=== PATIENT | male | born 1955 | race Caucasian/White ===

== ENCOUNTER 2019-12-01 10:21 | Emergency (ER) | payer MEDICARE, MEDICAID ==
[~2019-12-01] VITALS: Ht 167.6 cm; Wt 106.8 kg
[~2019-12-01 10:21] MED LIST: ASPI-1265 PO; METO50TA7 PO; ROSU20TA2 PO; SITA100T15 PO; TRAM50TA2 PO; VALS160T2 PO
[2019-12-01 10:38] VITALS: BP 193/61
== END 2019-12-01 12:07 | disposition home or self-care (01) ==
LOC: ER 10:22
DX: S93.402A Sprain of unspecified ligament of left ankle, initial encounter (principal); E11.9 Type 2 diabetes mellitus without complications; Z79.899 Other long term (current) drug therapy; Z88.5 Allergy status to narcotic agent; Z88.8 Allergy status to other drugs, medicaments and biological substances; Z72.89 Other problems related to lifestyle; W10.9XXA Fall (on) (from) unspecified stairs and steps, initial encounter; Y93.01 Activity, walking, marching and hiking; Y92.89 Other specified places as the place of occurrence of the external cause; Y99.8 Other external cause status
CPT/HCPCS: 73610; 99283

== ENCOUNTER 2024-06-13 09:17 | Day surgery (SDC) | payer MEDICARE, MEDICAID ==
[~2024-06-13] VITALS: Ht 165.1 cm; Wt 93.1 kg
[2024-06-13] VITALS (10 sets, daily range): BP systolic 152–188; BP diastolic 58–85; PULSE 45–69; RESP 12–19; TEMP 98; O2SAT 95–97
[2024-06-13] MEDS ORDERED: MESSAGE TO NURSING IV ONE (09:45)
[2024-06-13] MEDS ORDERED: INSU3INS2 SQ (09:46)
[2024-06-13] MEDS ORDERED: LOSA1TAB41 PO (09:47)
[2024-06-13] MEDS ORDERED: FERR324T PO (09:47)
[2024-06-13] MEDS ORDERED: ATOR10TA70 PO (09:49)
[2024-06-13] MEDS ORDERED: NOVRI SQ (09:49)
[2024-06-13] MEDS ORDERED: LABE100T8 PO (09:52)
[2024-06-13] MEDS ORDERED: CARV25TA56 PO (09:54)
[2024-06-13] MEDS: sodium bicarbonate 1meq/ml syr 150 ML in dextrose 5%-water 1,000 ML IV ONE (10:07)
[2024-06-13] MEDS: normal saline 1,000 ML IV SCH (10:07)
[2024-06-13 10:15] LABS: BASOPHILS % (AUTO) 0.4 % (0-1); EOSINOPHILS # (AUTO) 0.2 X10'3 (0-0.9); EOSINOPHILS % (AUTO) 1.7 % (0-6); HEMATOCRIT 34.5 % (42.0-52.0); HEMOGLOBIN 11.5 g/dl (14.0-17.9); LYMPHOCYTES # (AUTO) 2.2 X10'3 (1.1-4.8); LYMPHOCYTES % (AUTO) 20.6 % (21-51); MEAN CORPUSCULAR HGB CONC 33.4 g/dL (33.0-36.5); MEAN CORPUSCULAR VOLUME 86.9 FL (78-98); MONOCYTES # (AUTO) 0.7 X10'3 (0-0.9); MONOCYTES % (AUTO) 6.5 % (2-12); NEUTROPHILS # (AUTO) 7.5 X10'3 (1.8-7.7); NEUTROPHILS % (AUTO) 70.8 % (42-75); PLATELET COUNT 278 X10'3 (140-440); RED BLOOD COUNT 3.98 X10'6 (4.70-6.10); RED CELL DISTRIBUTION WIDTH 16.6 % (11.5-14.5); WHITE BLOOD COUNT 10.6 X10'3 (4.5-11.0)
[2024-06-13 10:16] LABS: INR 1.1 INR; PROTHROMBIN TIME 10.9 SECONDS (9.0-12.0)
[2024-06-13 10:17] LABS: ALBUMIN 3.7 G/DL (3.4-5.0); ANION GAP 8 (8-16); BLOOD UREA NITROGEN 12 MG/DL (7-18); BUN/CREATININE RATIO 15.4 (10.0-20.0); CALCIUM 8.5 MG/DL (8.5-10.1); CHLORIDE 107 MMOL/L (99-107); CREATININE 0.78 MG/DL (0.60-1.10); GLUCOSE 85 MG/DL (70-104); MAGNESIUM 1.9 MG/DL (1.5-2.4); POTASSIUM 3.7 MMOL/L (3.5-5.1); SODIUM 142 MMOL/L (135-145); TOTAL CARBON DIOXIDE 26.7 MMOL/L (24-32); eCRCL 78 ML/MIN; eGFR > 90 ML/MIN
[2024-06-13] MEDS: diphenhydrAMINE 25mg capsule PO PRN (10:34)
[2024-06-13] MEDS ORDERED: iohexol 350MG/ML 100ml bottle IV ONE ×2 (12:02→13:09)
[2024-06-13] MEDS ORDERED: heparin 1,000unit/ml 10ml vial 10 ML ONE (12:02)
[2024-06-13] MEDS ORDERED: iohexol 350 MG/ML 50ML vial IV ONE (12:02)
[2024-06-13] MEDS ORDERED: midazolam 1 mg/ML 2ml injection ONE ×2 (12:02→12:46)
[2024-06-13] MEDS ORDERED: LIDOcaine 1% (10mg/ml) 2ml vial ONE ×2 (12:02→12:50)
[2024-06-13] MEDS ORDERED: verapamil 2.5 mg/ml inj IV ONE (12:02)
[2024-06-13] MEDS ORDERED: fentaNYL/PF 50MCG/1 ML 2ML syringe ONE (12:02)
[2024-06-13] MEDS ORDERED: nitroGLYCERIN 500mcg/5mL D5W 5 ML IV ONE (12:03)
[2024-06-13] MEDS ORDERED: HYDROmorphone 1 mg/ml syringe ONE (12:35)
[2024-06-13] MEDS ORDERED: proCHLORperazine 10 MG/2 ml inj ONE (12:53)
[2024-06-13] MEDS ORDERED: enalaprilat 1.25mg/ml 2ml vial IV ONE (13:22)
[2024-06-13] MEDS ORDERED: hydrALAZINE 20mg/ml inj. ONE (13:34)
[2024-06-13] MEDS ORDERED: HYDROcodone/acetaminophen 5mg/325mg tablet PO PRN (14:00)
[2024-06-13] MEDS ORDERED: ondansetron/PF 4mg/2ml inj IV PRN (14:00)
[2024-06-13] MEDS ORDERED: HYDROcodone/acetaminophen 10/325mg tab PO PRN (14:00)
[2024-06-13] MEDS ORDERED: proCHLORperazine 10 MG/2 ml inj IV PRN (14:00)
[2024-06-13] MEDS: cloNIDine 0.1 mg tablet PO ONE (14:59)
== END 2024-06-13 17:15 | disposition home or self-care (01) ==
LOC: SSTAY O 09:17
PROVIDERS: ATTEND Internal Medicine Cardiovascular Disease
DX: I25.118 Atherosclerotic heart disease of native coronary artery with other forms of angina pectoris (principal); I35.0 Nonrheumatic aortic (valve) stenosis; I44.7 Left bundle-branch block, unspecified; E78.5 Hyperlipidemia, unspecified; E11.9 Type 2 diabetes mellitus without complications; I10 Essential (primary) hypertension; I65.23 Occlusion and stenosis of bilateral carotid arteries; F31.9 Bipolar disorder, unspecified; B19.20 Unspecified viral hepatitis C without hepatic coma; G47.30 Sleep apnea, unspecified
CPT/HCPCS: 36415; 80048; 82948; 83735; 85025; 85610; 93005; 93458; 99152; 99153; A6258; A6402; C1894; J0360; J0780; J1171; J1644; J2003; J2250; J3010; J3490; J7030; J7070; Q0163; Q9967; Z7610

== ENCOUNTER 2025-01-06 09:57 | Inpatient (IN) | payer MEDICARE, MEDICAID ==
[2024-12-29 13:59] LABS: LEUKOCYTE ESTERASE ,URINE NEGATIVE (Neg); NITRITES, URINE NEGATIVE (Neg); OCCULT BLOOD,URINE NEGATIVE (Neg)
[2024-12-29 14:00] LABS: UA COLLECTION TYPE CLN CATCH MIDSTREAM
[2024-12-29 14:07] LABS: MUCUS STRANDS NONE SEEN /LPF (Neg); SQUAMOUS EPITHELIAL CELL,UR FEW /LPF (FEW)
--- NOTE | 2024-12-29 15:00 | ELECTROCARDIOGRAPH REPORT ---
[facility] Test Date: 2024-12-29 Test Time: 15:57:58 Pat Name: MECCA HENRIQUEZ Department: PRE/OP CARDIOLOGY Room: Gender: M Service Unit Operator: ROBSON : 1955 Requested By: SANTOS QUIROZ Order Number: [id number] Reading MD: Dr. KAYLEEN Frazier Measurements Intervals [place] Rate: 64 P: 55 UT: 167 QRS: 58 QRSD: 145 T: 180 QT: 476 QTc: 491 Interpretive Statements Sinus rhythm Atrial premature complexes IVCD, consider atypical LBBB Electronically Signed On 12-29-2024 17:49:[address] KAYLEEN Frazier Please click the below link to view image of tracing.
[2024-12-29 15:15] LABS: MEAN PLATELET VOLUME 9.2 FL (7.4-10.4); PRE OP HEMATOCRIT 35.6 % (42.0-52.0); PRE OP HEMOGLOBIN 12.1 g/dL (14.0-17.9); PRE OP PLATELET COUNT 239 X10'3 (140-440); PRE OP WHITE BLOOD COUNT 9.4 10'3 (4.8-10.8); RED CELL DISTRIBUTION WIDTH 15.2 % (11.5-14.5)
--- NOTE | 2024-12-29 15:40 | RADIOLOGY REPORT ---
CHEST RADIOGRAPH Indication: PRE OP CXR CABG Technique: Frontal and lateral view of the chest was obtained Comparison: CATH HEART CATH W/WO STENT on DOS: 06/13/24 FINDINGS: Lines and Tubes: None Lungs: Clear Pleura: No effusion. No pneumothorax. Cardiomediastinal contours: Unremarkable Bones: Unremarkable IMPRESSION: No evidence of acute disease.
--- NOTE | 2024-12-29 15:41 | VASCULAR REPORT ---
PROCEDURE: [facility] VENOUS Exam Date: 12/29/2024 02:29 PM History: Pain Findings: Duplex Doppler evaluation of the superficial veins of the right and left lower extremities was performed including color Doppler and spectral/pulsed waveform analysis. Measurements of the lower extremity superficial veins in millimeters (mm) are provided below. [employer] Preop CABG vein mapping Vein Measurements Great Saphenous Small Saphenous Right Lef Right Left Saph-Fem. 5.03mm 3.88mm Proximal Junction Mid Thigh 4.86mm 2.45mm Mid Distal Thigh 3.27mm 3.83mm Distal Proximal Calf 2.81mm 2.81mm Mid Calf 2.46mm 1.61mm Distal Calf 2.87mm 1.77mm CONCLUSION Imaging reveals a patent great saphenous vein bilaterally. The great saphenous vein was measured and mapped bilaterally. Tech note* there appears to be a bifid great saphenous vein system in the right lower extremity from mid thigh to proximal calf. The true great saphenous vein was measured.
--- NOTE | 2024-12-29 15:43 | VASCULAR REPORT ---
Carotid Duplex Date: 12/29/2024 02:11 PM Clinical History: Preop CABG Comparison: VASC VL VENOUS on DOS: 12/29/24 Technique: Duplex Doppler evaluation of the extracranial carotid and vertebral arteries including color Doppler and spectral/pulsed waveform analysis was performed. Findings: Doppler Spectral Velocity Analysis Right Lef pCCA 84/14 cm/s pCCA 149/31 cm/s dCCA 82/18 cm/s dCCA 126/26 cm/s ECA 221/ cm/s ECA 111/ cm/s pICA 111/26 cm/s pICA 93/22 cm/s Brien 95/20 cm/s Brien 89/24 cm/s dICA 118/28 cm/s dICA 102/24 cm/s Vert. 68/10 cm/s Vert. 66/20 cm/s Subcl. 126/ cm/s Subcl. 163/ cm/s ICA/CCA 1.43 ICA/CCA 0.80 Real-Time B-Mode Imaging Area Findings Right Left CCA Plaque Composition Intimal thickening Heterogeneous Plaque Description Irregular BIF Plaque Composition Heterogeneous Heterogeneous Plaque Description Irregular Irregular ICA Plaque Composition Heterogeneous Heterogeneous Plaque Description Irregular Irregular ECA Plaque Composition Heterogeneous Heterogeneous Plaque Description Irregular Irregular Vertebral Antegrade Antegrade Subclavian Multiphasic Multiphasic CONCLUSION Mild heterogeneous irregular plaque visualized at the carotid arteries bilaterally. Less than 50% stenosis visualized in the internal carotid arteries bilaterally. Less than 50% stenosis visualized in the common and external carotid arteries bilaterally. Of note, the left external carotid artery appears to be approaching a possible 50% stenosis per imaging. There was also heterogeneous plaque visualized in common carotid artery, however no significant narrowing. the left proximal
[2024-12-29 15:52] LABS: PRE OP INR 1.0 INR; PRE OP PARTIAL THROMB. TIME 28.0 SECONDS (22-32); PRE OP PROTIME 10.4 SECONDS (9.0-12.0)
[2024-12-29 15:55] LABS: CREATININE 0.89 MG/DL (0.60-1.10); PRE OP ALT 31 U/L (30-65); PRE OP ANION GAP 5 (8-16); PRE OP AST 16 U/L (10-37); PRE OP BILIRUB, TOTAL 0.8 MG/DL (0.0-1.0); PRE OP GLUCOSE 95 MG/DL (70-104); PRE OP POTASSIUM 3.9 MMOL/L (3.4-5.1); PRE OP SODIUM 141 MMOL/L (135-145); TOTAL CARBON DIOXIDE 31.3 MMOL/L (24-32); eGFR 85 ML/MIN
[2024-12-30 07:43] LABS: ABG BASE EXCESS 1.0 mmol/L (-2.0-3.0); ABG HCO3 25.1 mmol/L (21.0-28.0); ABG OXYGEN SATURATION 94.7 % (94.0-98.0); ABG PCO2 (T) 38.1 mmHg (35.0-48.0); ABG PH (T) 7.436 (7.350-7.450); ABG PO2 (T) 74.8 mmHg (83.0-108.0); ALLEN'S TEST POSITIVE; FCOHb 0.1 % (0.5-1.5); FHHb 5.3 % (0.0-5.0); FIO2 21.0 mmHg/%; FMetHb 0.3 % (0.0-1.5); FO2Hb 94.3 % (94.0-98.0); MODE ROOM AIR; PATIENT TEMPERATURE 37.0; TOTAL HEMOGLOBIN 13.1 G/dl (13.5-17.5)
--- NOTE | 2024-12-31 15:32 | PROCEDURE NOTE - Respiratory ---
Procedure Note-Respiratory Providers to CC Copies To 1: SANTOS QUIROZ III, MD Procedure Name: This is a spirometry study dated December 29, 2024. Spirometry measurements: Both the forced vital capacity and the FEV1 are normal. The FEV1 ratio is normal. The flow rates are normal. The inspiratory limb of the flow volume loop appears to be somewhat truncated. Bronchodilator was not administered as part of the study. Conclusion: Normal screening spirometry. We have no previous studies for comparison. CELIO MA MD Dec 31, 2024 15:32
[2025-01-06] VITALS (16 sets, daily range): BP systolic 104–141; BP diastolic 44–90; PULSE 66–97; RESP 13–24; TEMP 98.2; O2SAT 72–97
[~2025-01-06] VITALS: Ht 165.1 cm; Wt 92.0 kg
[~2025-01-06 09:57] MED LIST changes: +ASCO-134 PO; +ATOR10TA70 PO; +CHOL200012 PO; +CYAN-116 PO; +DAPA10TA PO; +FERR324T PO; +INSU3INS2 SQ; +LABE100T8 PO; +LOSA1TAB41 PO; +MAGN400C PO; -METO50TA7 PO; +NIFE-73 PO; +POTA99CA PO; -ROSU20TA2 PO; +SEMA1PEN3 SUBCUT; -SITA100T15 PO; -TRAM50TA2 PO; -VALS160T2 PO; +VITA1CAP PO; +dextrose 50%-water 50ml dispensing syringe IV PRN; +insulin glargine (Lantus) pen - multi-dose SQ PRN; +metoprolol tartrate 12.5mg (1/2 tablet) PO ONE
[2025-01-06] MEDS ORDERED: heparin 10,000 units/1 ML INJ ONE ×2 (10:12→12:15)
[2025-01-06] MEDS ORDERED: vancomycin 1,000mg inj ONE ×2 (10:13→10:24)
[2025-01-06] MEDS ORDERED: BUPIVAcaine 0.5% inj/PF 30 ML ONE (10:13)
[2025-01-06] MEDS ORDERED: propofol inj 20 ML IV ONE (11:25)
[2025-01-06] MEDS ORDERED: rocuronium 10mg/ml inj IV ONE ×2 (11:25)
[2025-01-06] MEDS ORDERED: ePHEDrine 50MG/ML INJ. ONE (11:26)
[2025-01-06] MEDS: metoprolol tartrate 12.5mg (1/2 tablet) PO ONE (12:11)
[2025-01-06] MEDS: mupirocin 2% nasal ointment 1gm UD NS ONE (12:12)
[2025-01-06] MEDS: VANCOMYCIN/H2O 1.5g/300mL PB 300 ML IV ONE (12:12)
[2025-01-06] MEDS: ringers solution, lacted 1,000 ML IV SCH (12:12)
[2025-01-06] MEDS: ceFAZolin 2gm/dext,iso 50mL 50 ML IV ONE (12:14)
[2025-01-06] MEDS ORDERED: calcium chloride 100 MG/1 ML inj IV ONE (12:15)
[2025-01-06] MEDS ORDERED: NORepinephrine 1 mg/ml inj IV ONE (12:15)
[2025-01-06] MEDS ORDERED: albumin (human) 25% 100 ML IV solution IV ONE (12:15)
[2025-01-06] MEDS ORDERED: mannitol 12.5gm/50mL VIAL IV ONE (12:15)
[2025-01-06] MEDS ORDERED: methylPREDNISolone sod succ 1000mg vial ONE (12:15)
[2025-01-06] MEDS ORDERED: sodium bicarbonate (8.4%) 1 mEq/ml syringe ONE (12:15)
[2025-01-06] MEDS ORDERED: MAGNESIUM SULFATE 4 MEQ/ML (5gm/10ml) injection ONE (12:15)
[2025-01-06] MEDS ORDERED: protamine sulfate 10mg/ml inj. ONE (12:15)
[2025-01-06] MEDS ORDERED: aminocaproic acid 250 MG/1 ML inj. ONE ×2 (12:15)
[2025-01-06] MEDS ORDERED: MIDAZolam 1 MG/ML 5ML VIAL ONE (12:16)
[2025-01-06] MEDS ORDERED: SUfentanil 50mcg/ml 1ml amp IV ONE (12:16)
[2025-01-06] MEDS: midazolam 1 mg/ML 2ml injection IV ONE (12:18)
--- NOTE | 2025-01-06 12:41 | VASCULAR REPORT ---
Indication: Preoperative radial artery mapping Technique: Real- time ultrasound images of the bilateral radial arteries grayscale, color, and spectral wave Doppler. Comparison: None Findings: Peak systolic velocities are as follows (in cm/s): Right: The right radial artery measures in mm 2.9 mm proximally, 2.3 mm mid segment, 2.4 mm distally. Left: The left radial artery measures 8 mm 2.9 mm proximally, 1.8 mm mid segment, 1.8 mm distally. Within the limitations of sonography, the bilateral palmar arch appears patent. Biphasic/ triphasic waveforms within the right radial artery. Biphasic / triphasic waveforms within the left radial artery. Impression: As above
[2025-01-06 12:58] LABS: ABG BASE EXCESS -4.1 mmol/L (-2.0-3.0); ABG HCO3 20.1 mmol/L (21.0-28.0); ABG OXYGEN SATURATION 97.6 % (94.0-98.0); ABG PCO2 34.0 mmHg (35.0-48.0); ABG PH 7.390 (7.350-7.450); ABG PO2 104.9 mmHg (83.0-108.0); CL (ABG) 109 mmol/L (98-107); FCOHb 0.1 % (0.5-1.5); FHHb 2.4 % (0.0-5.0); FMetHb 0.3 % (0.0-1.5); FO2Hb 97.2 % (94.0-98.0); GLUCOSE (ABG) 97 mg/dl (65-95); IONIZED CA (ABG) 1.13 mmol/L (1.15-1.33); K (ABG) 3.7 mmol/L (3.40-4.50); TOTAL HEMOGLOBIN 12.2 G/dl (13.5-17.5)
[2025-01-06 13:03] LABS: ACT @ 1.70 U 275 SEC (193-297); ACT @ 2.84 U 380 SEC (260-420); BASELINE ACT 138 SEC (101-148); PATIENT WEIGHT 83.0k KG
[2025-01-06] MEDS: vancomycin 1,000mg inj IVT ONE (13:04)
[2025-01-06] MEDS: papaverine 30 mg/ml 2ml inj. IA ONE (13:04)
[2025-01-06] MEDS: BUPIVAcaine 0.5% inj/PF 30 ml vial IJ ONE (13:04)
[2025-01-06] MEDS: heparin 10,000 units/1 ML INJ IR ONE ×2 (13:04→13:50)
[2025-01-06] MEDS: verapamil 2.5 mg/ml inj IV ONE (13:04)
[2025-01-06 14:33] LABS: ABG BASE EXCESS VENOUS -2.8 mmol/L (-2.0-3.0); ABG HCO3 VENOUS 22.3 mmol/L (22.0-29.0); ABG OXYGEN SATURATION VENOUS 79.0 % (60.0-85.0); ABG PCO2 VENOUS 39.9 mmHg (38.0-54.0); ABG PH (VENOUS) 7.366 (7.320-7.430); ABG PO2 VENOUS 43.8 mmHg (23.0-48.0); CL (ABG) 102 mmol/L (98-107); FCOHb VENOUS 0.4 % (0.5-1.5); FHHb VENOUS 20.9 %; FMetHb VENOUS 0.3 % (0.5-1.5); FO2Hb VENOUS 78.4 % (0-80.0); GLUCOSE (ABG) 97 mg/dl (65-95); IONIZED CA (ABG) 0.86 mmol/L (1.15-1.33); K (ABG) 3.9 mmol/L (3.40-4.50); TOTAL HEMOGLOBIN 8.2 G/dl (13.5-17.5)
[2025-01-06 14:35] LABS: ACTIVATED CLOTTING TIME 760.0 SEC (101-148)
[2025-01-06 14:35] LABS: ABG BASE EXCESS -3.3 mmol/L (-2.0-3.0); ABG HCO3 21.4 mmol/L (21.0-28.0); ABG OXYGEN SATURATION 99.5 % (94.0-98.0); ABG PCO2 36.7 mmHg (35.0-48.0); ABG PH 7.383 (7.350-7.450); CL (ABG) 104 mmol/L (98-107); FCOHb 0.3 % (0.5-1.5); FHHb 0.5 % (0.0-5.0); FMetHb 0.3 % (0.0-1.5); FO2Hb 98.9 % (94.0-98.0); GLUCOSE (ABG) 99 mg/dl (65-95); IONIZED CA (ABG) 0.95 mmol/L (1.15-1.33); K (ABG) 3.5 mmol/L (3.40-4.50); TOTAL HEMOGLOBIN 8.3 G/dl (13.5-17.5)
[2025-01-06 14:46] LABS: ABG BASE EXCESS -2.9 mmol/L (-2.0-3.0); ABG HCO3 22.5 mmol/L (21.0-28.0); ABG OXYGEN SATURATION 99.3 % (94.0-98.0); ABG PCO2 41.8 mmHg (35.0-48.0); ABG PH 7.349 (7.350-7.450); CL (ABG) 106 mmol/L (98-107); FCOHb 0.3 % (0.5-1.5); FHHb 0.7 % (0.0-5.0); FMetHb 0.2 % (0.0-1.5); FO2Hb 98.8 % (94.0-98.0); GLUCOSE (ABG) 109 mg/dl (65-95); IONIZED CA (ABG) 0.98 mmol/L (1.15-1.33); K (ABG) 4.0 mmol/L (3.40-4.50); TOTAL HEMOGLOBIN 8.7 G/dl (13.5-17.5)
[2025-01-06 15:03] LABS: ABG BASE EXCESS -1.7 mmol/L (-2.0-3.0); ABG HCO3 23.5 mmol/L (21.0-28.0); ABG OXYGEN SATURATION 99.1 % (94.0-98.0); ABG PCO2 41.5 mmHg (35.0-48.0); ABG PH 7.370 (7.350-7.450); CL (ABG) 105 mmol/L (98-107); FCOHb 0.3 % (0.5-1.5); FHHb 0.9 % (0.0-5.0); FMetHb 0.2 % (0.0-1.5); FO2Hb 98.6 % (94.0-98.0); GLUCOSE (ABG) 138 mg/dl (65-95); IONIZED CA (ABG) 0.98 mmol/L (1.15-1.33); K (ABG) 3.8 mmol/L (3.40-4.50); TOTAL HEMOGLOBIN 8.2 G/dl (13.5-17.5)
[2025-01-06 15:13] LABS: ACTIVATED CLOTTING TIME 554.0 SEC (101-148)
[2025-01-06 15:29] LABS: ABG BASE EXCESS -1.7 mmol/L (-2.0-3.0); ABG HCO3 24.3 mmol/L (21.0-28.0); ABG PCO2 47.3 mmHg (35.0-48.0); ABG PH 7.328 (7.350-7.450); CL (ABG) 107 mmol/L (98-107); FCOHb 0.2 % (0.5-1.5); FHHb 28.7 % (0.0-5.0); FMetHb 0.2 % (0.0-1.5); FO2Hb 70.9 % (94.0-98.0); GLUCOSE (ABG) 177 mg/dl (65-95); IONIZED CA (ABG) 1.18 mmol/L (1.15-1.33); K (ABG) 4.0 mmol/L (3.40-4.50); TOTAL HEMOGLOBIN 8.6 G/dl (13.5-17.5)
[2025-01-06 15:32] LABS: ACTIVATED CLOTTING TIME 106 SEC (101-148)
[2025-01-06] MEDS: DOCUMENT DATE & TIME OF BETA-BLOCKER PO ONE (15:36)
[2025-01-06] MEDS: Insulin Reg/NS 100units/100mL 100 ML IV SCH ×2 (15:36→16:36)
[2025-01-06] MEDS ORDERED: dextrose 50%-water 50ml dispensing syringe IV PRN (15:40)
[2025-01-06] MEDS ORDERED: mineral oil 133ml enema RC PRN (15:40)
[2025-01-06] MEDS ORDERED: potassium Cl 20 mEq SR tablet PO PRN (15:40)
[2025-01-06] MEDS ORDERED: SODIUM PHOSPHATE IN D5W 260 ML IV PRN (15:40)
[2025-01-06] MEDS ORDERED: potassium Cl 40MEQ/1/2NS 520ml 520 ML IV PRN (15:40)
[2025-01-06] MEDS ORDERED: magnesium hydroxide 30ml (MOM) UD suspension PO PRN (15:40)
[2025-01-06] MEDS ORDERED: sodium phos 15mmol/D5 255mL 255 ML IV PRN (15:40)
[2025-01-06] MEDS ORDERED: potassium Cl 40MEQ/270ML bag 250 ML IV PRN (15:40)
[2025-01-06] MEDS ORDERED: bisacodyl 10mg suppository rectal RC PRN (15:40)
[2025-01-06] MEDS ORDERED: potassium CL 10mEq/100ml bag 100 ML IV PRN (15:40)
[2025-01-06] MEDS ORDERED: insulin glargine (Lantus) pen - multi-dose SQ PRN (15:40)
--- NOTE | 2025-01-06 15:56 | OPERATIVE REPORT ---
Operative Report Operative Report Cardiovascular surgery operative report 06 January 2025 Preoperative diagnosis: severe two-vessel coronary disease, exertional angina Postop diagnosis: Same Procedure: Coronary artery bypass grafting x3 placing the right internal mammary artery as a free graft to the obtuse marginal and a sequential left radial artery graft to the 1st and 2nd PDA of the RCA Surgeon: Dr. Huber Celis program support assistant: Dr. Boston Sharpe and Sharif Mills PA-C Anesthesia: General via endotracheal tube Complications: None EBL: 200 mL Procedure: The patient is taken to the operating room placed in supine position. Following the induction of general oral endotracheal anesthesia and the placement of appropriate lines the chest, abdomen and bilateral lower extremities as well as the left arm were prepped and draped sterilely. The left radial artery was removed endoscopically from the left forearm. Side branches were controlled with electrocautery. It was ligated proximally and distally and then excised. Side branches were then clipped with small hemoclips. It was flushed with heparinized blood containing nitroglycerin and set aside. Careful hemostasis was achieved throughout the tunnel which was irrigated with antibiotic solution. The incision was closed in two layers absorbable suture. At the same time a median sternotomy was performed in the right pleural space was widely opened. The right internal mammary artery was then dissected free of the anterior chest wall as a skeletonized graft. Side branches were controlled with the electrocautery and hemoclips. The patient was systemically heparinized and after 3 minutes the DENNIS was divided at the diaphragm, ligating it distally with 0 silk. It was flushed with heparinized blood containing nitroglycerin and set aside. The pericardium was then opened in midline and suspended. Single aortic and dual stage right atrial cannula were then placed for cardiopulmonary bypass. The distal anastomosis with a bypasses were all done with running seven 0 Prolene, probing prior to tying the suture line to ensure patency. They were done on a beating heart using cardiopulmonary bypass for hemodynamic support. An epicardial stabilizer was utilized to facilitate the distal anastomosis. The 1st bypass was a sequential radial graft to the right system placing an end-to-side anastomosis to the PDA two with a [id number] anastomosis to the PDA one. The free right internal mammary artery graft was then anastomosed in end-to-side fashion to the obtuse marginal. A partial occluding clamp was placed in the ascending aorta and two aortotomies were created with a 4 mm punch. This allowed the proximal anastomosis with the vein grafts to be performed. Each was done in end-to-side fashion with running six 0 Prolene. Proximal markers were placed. The clamp was removed and flow was restored to the entire coronary circulation. Temporary pacing wires placed the anterior surface of the right ventricle. Ventilation was resumed. The patient was then easily weaned from cardiopulmonary bypass. He was decannulated in the standard fashion protamine solution was administered to reverse heparinization. Careful hemostasis was achieved throughout the mediastinum. A 2 mm flow probe was used to confirm PI of less than two with a both grafts as well as flows of 25-30 mL/minute. The pericardial fat was loosely approximated in the midline with interrupted 2-0 Ethibond, taking away kinking or compression of the underlying grafts. A 28 Lao Randal drain was placed to the right pleural space with a 32 Lao straight chest tube placed anterior to the mediastinum. These were both secured to skin with 1. Silk. The chest was then closed by 1st treating the sternal edges with the vancomycin paste. It was reapproximated in the midline with interrupted [id number]-rzywnt of 7. Stainless steel wire in concert with zip fix sternal bands. The midline fascia, subcutaneous tissue and skin were closed in layers. Sterile dressings were applied and the chest tube was attached to water-seal. The patient is then returned to the ICU in critical but stable condition, having tolerated the procedure satisfactorily. There were no complications. Sponge, needle and instrument counts were correct x2 at the end of the case. Sharif Mills PA-C was present for and assisted throughout the entire procedure. HUBER CELIS III, MD Jan 06, 2025 15:56
--- NOTE | 2025-01-06 16:16 | ELECTROCARDIOGRAPH REPORT ---
[facility] Test Date: 2025-01-06 Test Time: 16:14:58 Pat Name: MECCA HENRIQUEZ Department: [facility] Room: [facility] 2008 A Gender: M Foil Wrapper: ROBSON : 1955 Requested By: SANTOS QUIROZ Order Number: [id number] Reading MD: Dr. KAYLEEN Frazier Measurements Intervals [place] Rate: 96 P: 34 HI: 171 QRS: -2 QRSD: 148 T: 129 QT: 377 QTc: 477 Interpretive Statements Sinus rhythm Left bundle branch block Electronically Signed On 01-06-2025 18:03:[address] KAYLEEN Frazier Please click the below link to view image of tracing.
[2025-01-06 16:22] LABS: MEAN PLATELET VOLUME 8.9 FL (7.4-10.4); RED CELL DISTRIBUTION WIDTH 16.0 % (11.5-14.5)
[2025-01-06 16:31] LABS: ABG BASE EXCESS -3.4 mmol/L (-2.0-3.0); ABG HCO3 22.1 mmol/L (21.0-28.0); ABG OXYGEN SATURATION 93.7 % (94.0-98.0); ABG PCO2 (T) 40.3 mmHg (35.0-48.0); ABG PH (T) 7.354 (7.350-7.450); ABG PO2 (T) 73.0 mmHg (83.0-108.0); FCOHb 1.2 % (0.5-1.5); FHHb 6.2 % (0.0-5.0); FIO2 80.0 mmHg/%; FMetHb 0.3 % (0.0-1.5); FO2Hb 92.3 % (94.0-98.0); MODE VENT - SIMV/VC; PATIENT TEMPERATURE 36.5; PEEP 5 cm H2O; RESPIRATORY RATE 14 b/min; TIDAL VOLUME 500 mL; TOTAL HEMOGLOBIN 11.8 G/dl (13.5-17.5)
[2025-01-06] MEDS: nitroGLYCERIN-Tridil 50MG/D5W 250 ML IV SCH (16:35)
[2025-01-06 16:36] LABS: APTT 30 SECONDS (22-32); INR 1.2 INR
[2025-01-06] MEDS: niCARDipine-NS 40mg/200ml IVPB 200 ML IV PRN (16:36)
[2025-01-06 16:45] LABS: CREATININE 0.91 MG/DL (0.60-1.10); PHOSPHORUS 4.1 MG/DL (2.3-4.5); TOTAL CARBON DIOXIDE 24.7 MMOL/L (24-32); eCRCL 67 ML/MIN; eGFR 83 ML/MIN
[2025-01-06] MEDS: potassium Cl 20mEq/100mL bag 100 ML IV PRN (16:57)
[2025-01-06] MEDS ORDERED: niCARDipine-NS 40mg/200ml IVPB 200 ML IV PRN (17:12)
[2025-01-06] MEDS: magnesium sulf-water 4G/100mL 100 ML IV PRN (17:13)
[2025-01-06] MEDS: ceFAZolin/D5W- 1GM premix 50 ML IV SCH (17:16)
--- NOTE | 2025-01-06 17:23 | RADIOLOGY REPORT ---
CHEST RADIOGRAPH Indication: POST OP Technique: DI CHEST,SINGLE VIEW Comparison: None FINDINGS: Right IJ catheter tip projects over the SVC. Right IJ swan-Sang catheter tip projects over the main pulmonary artery. Nasogastric tube projects towards stomach. Endotracheal tube tip projects 4.7 cm above the alex. Right chest tube projects over the right upper lung. There is another line projecting over the midline abdomen and lower mid mediastinum. Correlate exclude any type of retained foreign body. The cardiac silhouette is borderline enlarged. The lungs demonstrate diffuse bilateral patchy airspace opacities. The pulmonary vasculature is prominent. Small bilateral pleural effusion. There is no pneumothorax. IMPRESSION: As above
[2025-01-06] MEDS: albumin (Human) 5% 250ml 250 ML IV PRN (17:33)
[2025-01-06] MEDS: magnesium sulf-water 2g/50mL 50 ML IV PRN (17:49)
[2025-01-06] MEDS: morphine 4 MG/ML inj SYRINge IV PRN (18:36)
[2025-01-06] MEDS: dexmedetomidin/NS 400mcg/100ml 100 ML IV PRN (18:49)
[2025-01-06 19:51] LABS: ABG BASE EXCESS -4.8 mmol/L (-2.0-3.0); ABG HCO3 20.1 mmol/L (21.0-28.0); ABG OXYGEN SATURATION 94.5 % (94.0-98.0); ABG PCO2 (T) 35.0 mmHg (35.0-48.0); ABG PH (T) 7.373 (7.350-7.450); ABG PO2 (T) 73.6 mmHg (83.0-108.0); FCOHb 1.0 % (0.5-1.5); FHHb 5.4 % (0.0-5.0); FIO2 40.0 mmHg/%; FMetHb 0.3 % (0.0-1.5); FO2Hb 93.3 % (94.0-98.0); MODE VENT - CPAP; PATIENT TEMPERATURE 36.1; PEEP 5 cm H2O; TOTAL HEMOGLOBIN 11.1 G/dl (13.5-17.5)
[2025-01-06] MEDS: mupirocin 2% nasal ointment 1gm UD NS SCH (20:18)
[2025-01-06] MEDS: ketorolac trometh 15mg/ml vial 15 MG/ML ML IV SCH (20:18)
[2025-01-06] MEDS: vancomycin/NS 1 GM ADD-VANTAGE 250 ML IV SCH (20:18)
[2025-01-06] MEDS: acetaminophen 1,000mg/100ml IV 100 ML IV ONE (21:09)
[2025-01-06 22:24] LABS: MEAN PLATELET VOLUME 9.1 FL (7.4-10.4); RED CELL DISTRIBUTION WIDTH 15.9 % (11.5-14.5)
[2025-01-06 22:39] LABS: CREATININE 0.98 MG/DL (0.60-1.10); PHOSPHORUS 3.8 MG/DL (2.3-4.5); TOTAL CARBON DIOXIDE 24.6 MMOL/L (24-32); eCRCL 62 ML/MIN; eGFR 76 ML/MIN
[2025-01-07] VITALS (30 sets, daily range): BP systolic 98–148; BP diastolic 47–66; PULSE 63–125; RESP 12–30; O2SAT 91–99
[2025-01-07 03:16] LABS: MEAN PLATELET VOLUME 10.3 FL (7.4-10.4); RED CELL DISTRIBUTION WIDTH 16.0 % (11.5-14.5)
[2025-01-07 03:39] LABS: CREATININE 0.97 MG/DL (0.60-1.10); PHOSPHORUS 4.4 MG/DL (2.3-4.5); TOTAL CARBON DIOXIDE 22.9 MMOL/L (24-32); eCRCL 63 ML/MIN; eGFR 77 ML/MIN
--- NOTE | 2025-01-07 06:19 | RADIOLOGY REPORT ---
CHEST RADIOGRAPH Indication: POST OP Technique: Single frontal view of the chest was obtained Comparison: DI CHEST,SINGLE VIEW on DOS: 01/06/25, DI CHEST,TWO VIEWS on DOS: 12/29/24 FINDINGS: Lines and Tubes: Removal of the endotracheal tube and the [place]-Sang catheter. Removal of the enteric tube. There is a right central venous catheter with the tip terminating in the superior vena cava. Lungs: Stable bilateral opacities. Pleura: Is a left pleural effusion. No pneumothorax. Cardiomediastinal contours: Unremarkable Bones: No acute osseous abnormality. IMPRESSION: 1. Removal of the endotracheal tube, [place]-Sang catheter and enteric tube. 2. Stable bilateral pulmonary opacities and left pleural effusion.
[2025-01-07 07:13] LABS: ABG PO2 387.6 mmHg (83.0-108.0)
[2025-01-07 07:14] LABS: ABG PO2 379.6 mmHg (83.0-108.0)
[2025-01-07 07:14] LABS: ABG PO2 373.7 mmHg (83.0-108.0)
[2025-01-07 07:15] LABS: ABG OXYGEN SATURATION 71.2 % (94.0-98.0); ABG PO2 40.1 mmHg (83.0-108.0)
[2025-01-07] MEDS: cholecalciferol (vitamin D3) 1,000 unit (25mcg) tablet PO SCH (07:25)
[2025-01-07] MEDS: cyanocobalamin 500mcg tablet PO SCH (07:30)
[2025-01-07] MEDS: metoprolol tartrate 12.5mg (1/2 tablet) PO SCH (07:30)
[2025-01-07] MEDS: vitamin B comp w/Vit. C tab 1 TAB TABLET PO SCH (07:34)
[2025-01-07] MEDS: ondansetron/PF 4mg/2ml inj IV PRN (07:43)
--- NOTE | 2025-01-07 08:10 | PROGRESS NOTE ---
Progress Note CV Providers to CC ~ Progress Note: POD#1 CABG Central Line/PICC still needed: No Kaley Indications Met/Not Met: F/C Indications Met Antibiotics Ordered?: Yes If Yes, Indications?: Surgical prophylaxis If Yes, Anticipated Duration?: 48 hours Subjective Subjective Patient a little sore this morning otherwise feeling well. Objective Vitals Vital Signs Date Time Temp Pulse Resp B/P (MAP) Pulse Ox O2 Delivery O2 Flow Rate FiO2 01/07/25 08:01 150/57 01/07/25 07:31 21 01/07/25 07:30 70 01/07/25 07:24 10.0 01/07/25 07:18 98 01/07/25 07:00 98.6 High Flow Nasal Cannula 01/07/25 06:00 35 Lab Results: 01/07/25 0300 01/07/25 0300 Objective Lungs decreased at right base greater than left base. Good expansion in the apices. Cardiac exam regular rate and rhythm with soft rub. Sternal incision clean and dry. Chest tube output moderate without air leak Coagulation Studies Laboratory Tests Test 01/06/25 14:04 01/06/25 16:10 01/06/25 16:37 Patient Sex (Coag) M Patient Height (Coag) 165cm Patient Weight (Coag) 83.0k KG Patient Blood Volume 5578 ML Pump Volume 1500 ML Total Blood Volume 7078 ML Projected Heparin Concentration 2.6 MG/KG Heparin [place] 98 Calculated Heparin Bolus 69764 UNITS Activated Coagulation Time Baseline 138 SEC (101-148) Activated Coag Time 1.70 U/mL 275 SEC (193-297) Activated Coag Time 2.84 U/mL 380 SEC (260-420) Prothrombin Time 12.0 SECONDS (9.0-12.0) INR International Normalized Ratio 1.2 INR Activated Partial Thromboplast Time 30 SECONDS (22-32) Coagulation Comments Heparin Level (COAG) 0 MG/KG Calculated Heparin Req (Hep Assay) 98202 UNITS Calculated Protamine Req (Hep Assay 0 MG Activated Clotting Time 106 SEC (101-148) Cardiac Rhythm: Sinus Rhythm, BBB Problem\Assessment\Plan Additional Plan Doing well following coronary artery bypass grafting. We will begin Imdur this morning for renal artery graft. Begin to mobilize and push incentive spirometry. Low-dose beta blockade as tolerated. We will discontinue nitroglycerin drip this afternoon. SANTOS QUIROZ III, MD Jan 07, 2025 08:10
[2025-01-07] MEDS ORDERED: dextrose 50%-water 50ml dispensing syringe IV PRN ×2 (08:20)
[2025-01-07] MEDS ORDERED: DEXTROSE 15 GM of carb/4 tabs (each vial/BOTTLE has 4 tablets) PO PRN ×2 (08:20)
[2025-01-07] MEDS ORDERED: glucagon, human recombinant 1mg kit SUBCUT PRN (08:20)
[2025-01-07] MEDS: isosorbide mononitrate 30mg tab.SR.24H PO SCH (08:44)
[2025-01-07] MEDS: INSULIN LISPRO 100 UNIT/ML INSULN.PEN MULTI-DOSE SQ SCH (13:14)
[2025-01-07] MEDS: HYDROcodone/acetaminophen 10/325mg tab PO PRN ×2 (16:51→20:37)
--- NOTE | 2025-01-07 17:46 | CARDIOLOGY REPORT ---
APPROVED REPORT EXAM: Intraoperative transesophageal 2D, spectral and color flow Doppler echocardiogram. Study contains pre- and post-op images. Patient Location: CVOR Blood Pressure: 152 / 63 mmHg Heart Rate: 86 bpm Rhythm: MOSTLY SINUS WITH FREQUENT PVC's Indications CORONARY DISEASE CABG X 3 (2 RADIAL - CLAIRE ) Airport Control Operator: Fiona WHELAN DO / Ryan VINES MD / CCrowVCrowSURGEON: Tam QUIROZ MD Previous echo: NONE LEFT VENTRICLE PRE: Normal LV size with preserved systolic function. Mild concentric hypertrophy. LVEF is 55-60%. POST-OP: Unchanged. RIGHT VENTRICLE PRE: RV is normal size and function. POST-OP: Unchanged. ATRIA PRE: Left atrium appears at least mildly dilated. Left atrial appendage is visualized in multiple planes and appears normal without debris. Left upper pulmonary vein identified and isolated by 2D and color Doppler. Incidental saline study was performed with 1 IV injection of 10 ccs of agitated normal s flakito at rest. Negative saline study for right to left flow. POST-OP: Unchanged. AORTIC VALVE PRE: Trileaflet AV appears minimally sclerotic without stenosis or insufficiency. POST-OP: Unchanged. MITRAL VALVE PRE: Normal MV annulus without stenosis. Trace multijets regurgitation with BP 152/63. POST-OP: Mild multijet with BP 127 / 53 TRICUSPID VALVE PRE: TV appears structurally normal with mild regurgitation. POST-OP: Unchanged. PULMONIC VALVE PRE: Normal PV without stenosis, physiologic insufficiency. [place]-Sang catheter in the right heart across the pulmonic valve. POST-OP: Unchanged. GREAT VESSELS PRE: Aortic root is normal in size. Ascending aorta is normal in size. POST-OP: Unchanged. PERICARDIUM PRE: Normal pericardium. No effusion. POST-OP: Unchanged. CONCLUSION PRE: Normal LV size with preserved systolic function. Mild concentric hypertrophy. LVEF is 55-60%. POST-OP: Unchanged. PRE: RV is normal size and function. POST-OP: Unchanged. PRE: Left atrium appears at least mildly dilated. Left atrial appendage is visualized in multiple planes and appears normal wit hout debris. Left upper pulmonary vein identified and isolated by 2D and color Doppler. Incidental saline study was performed with 1 IV injection of 10 ccs of agitated normal saline at rest. Negative saline study for right to left flow. POST-OP: Unchanged. PRE: Trileaflet AV appears minimally sclerotic without stenosis or insufficiency. POST-OP: Unchanged. PRE: Normal MV annulus without stenosis. Trace multijets regurgitation with BP 152/63. POST-OP: Mild multijet with BP 127 / 53 PRE: TV appears structurally normal with mild regurgitation. POST-OP: Unchanged. PRE: Normal pericardium. No effusion. POST-OP: Unchanged. Conclusion PRE: Normal LV size with preserved systolic function. Mild concentric hypertrophy. LVEF is 55-60%. POST-OP: Unchanged. PRE: RV is normal size and function. POST-OP: Unchanged. PRE: Left atrium appears at least mildly dilated. Left atrial appendage is visualized in multiple planes and appears normal without debris. Left upper pulmonary vein identified and isolated by 2D and color Doppler. Incidental saline study was performed with 1 IV injection of 10 ccs of agitated normal saline at rest. Negative saline study for right to left flow. POST-OP: Unchanged. PRE: Trileaflet AV appears minimally sclerotic without stenosis or insufficiency. POST-OP: Unchanged. PRE: Normal MV annulus without stenosis. Trace multijets regurgitation with BP 152/63. POST-OP: Mild multijet with BP 127 / 53 PRE: TV appears structurally normal with mild regurgitation. POST-OP: Unchanged. PRE: Normal pericardium. No effusion. POST-OP: Unchanged.
[2025-01-07] MEDS: insulin glargine (Lantus) pen - multi-dose SQ SCH (21:47)
[2025-01-07] MEDS: amiodarone 150mg/dext, iso-os 100 ML IV ONE (22:38)
[2025-01-07] MEDS: amiodarone/D5 450MG/250ML BAG 250 ML IV SCH (22:47)
[2025-01-07] MEDS: amiodarone/D5 450MG/250ML BAG 250 ML IV ONE (23:21)
[2025-01-08] VITALS (34 sets, daily range): BP systolic 88–142; BP diastolic 44–69; PULSE 69–132; RESP 9–34; O2SAT 88–99
[2025-01-08 03:45] LABS: MEAN PLATELET VOLUME 9.9 FL (7.4-10.4); RED CELL DISTRIBUTION WIDTH 17.0 % (11.5-14.5)
[2025-01-08 03:48] LABS: CREATININE 2.10 MG/DL (0.60-1.10); PHOSPHORUS 6.4 MG/DL (2.3-4.5); TOTAL CARBON DIOXIDE 22.6 MMOL/L (24-32); eCRCL 29 ML/MIN; eGFR 31 ML/MIN
--- NOTE | 2025-01-08 06:05 | RADIOLOGY REPORT ---
CHEST RADIOGRAPH Indication: POST OP Technique: Single frontal view of the chest was obtained COMPARISON: DI CHEST,SINGLE VIEW on DOS: 01/07/25, DI CHEST,SINGLE VIEW on DOS: 01/06/25, DI CHEST,TWO VIEWS on DOS: 12/29/24 FINDINGS: Right-sided chest tube and right IJ line unchanged. Mediastinal drain unchanged. Stable mild enlargement of the cardiac silhouette. No pulmonary edema. Trace bilateral pleural effusions with mild bibasilar atelectatic changes. No pneumothorax or other adverse interval change. IMPRESSION: Stable findings.
--- NOTE | 2025-01-08 07:30 | PROGRESS NOTE ---
Progress Note CV Providers to CC ~ Antibiotics Ordered?: No Subjective Subjective S/P CABG X 3, POD # 2. He is alert, currently on bipap. Quite sore and asking for Morphine frequently. Objective Vitals Vital Signs Date Time Temp Pulse Resp B/P (MAP) Pulse Ox O2 Delivery O2 Flow Rate FiO2 01/08/25 07:07 75 16 97 60 16 01/08/25 07:00 99.0 121/65 (83) Bi-pap/CPAP 01/08/25 00:36 12.0 Lab Results: 01/08/25 0325 01/08/25 0325 Objective Lungs - a bit diminished at bases Heart - RRR, SR, A. fib last night, back to SR Abd/Extr - OK, L hand good CSM Incisions - CDI Coagulation Studies Laboratory Tests Test 01/06/25 14:04 01/06/25 16:10 01/06/25 16:37 Patient Sex (Coag) M Patient Height (Coag) 165cm Patient Weight (Coag) 83.0k KG Patient Blood Volume 5578 ML Pump Volume 1500 ML Total Blood Volume 7078 ML Projected Heparin Concentration 2.6 MG/KG Heparin [place] 98 Calculated Heparin Bolus 55481 UNITS Activated Coagulation Time Baseline 138 SEC (101-148) Activated Coag Time 1.70 U/mL 275 SEC (193-297) Activated Coag Time 2.84 U/mL 380 SEC (260-420) Prothrombin Time 12.0 SECONDS (9.0-12.0) INR International Normalized Ratio 1.2 INR Activated Partial Thromboplast Time 30 SECONDS (22-32) Coagulation Comments Heparin Level (COAG) 0 MG/KG Calculated Heparin Req (Hep Assay) 43687 UNITS Calculated Protamine Req (Hep Assay 0 MG Activated Clotting Time 106 SEC (101-148) Cardiac Rhythm: Sinus Rhythm, BBB Problem\Assessment\Plan Additional Plan POD # 2 CT output minimal and serous DC drains and PW. Creat elevated to 2.1, was on Toradol and had BP in the 80's with A. fib. Toradol DC'd, BP improved in SR Sepsis Screening Reassessment Date: Jan 08, 2025 Supervising Co-signing Provider: SONIA Banks Jan 08, 2025 07:30
[2025-01-08] MEDS ORDERED: potassium Cl 20 mEq SR tablet PO PRN ×2 (07:35)
[2025-01-08] MEDS ORDERED: potassium CL 10mEq/100ml bag 100 ML IV PRN (07:35)
[2025-01-08] MEDS ORDERED: potassium Cl 40MEQ/1/2NS 520ml 520 ML IV PRN (07:35)
[2025-01-08] MEDS ORDERED: magnesium sulf-water 4G/100mL 100 ML IV PRN (07:35)
[2025-01-08] MEDS ORDERED: magnesium sulf-water 2g/50mL 50 ML IV PRN (07:35)
[2025-01-08] MEDS ORDERED: potassium Cl 20mEq/100mL bag 100 ML IV PRN (07:35)
[2025-01-08] MEDS ORDERED: potassium Cl 40MEQ/270ML bag 250 ML IV PRN (07:35)
[2025-01-08] MEDS: insulin glargine (Lantus) pen - multi-dose SQ SCH (08:00)
[2025-01-08] MEDS: magnesium Cl slow-release 64mg tablet PO SCH (08:00)
[2025-01-08] MEDS: amiodarone inj. 450 MG in dextrose 5%-water 241 ML IV SCH (08:02)
[2025-01-08 08:16] LABS: ELLIPTOCYTES 4+; LYMPHOCYTES % (MANUAL) 12.0 % (21-51); MONOCYTES % (MANUAL) 5.0 % (2-12); NEUTROPHILS % (MANUAL) 83.0 % (42-75); PLATELET ESTIMATE NORMAL
--- NOTE | 2025-01-08 09:04 | RADIOLOGY REPORT ---
CHEST RADIOGRAPH Indication: SOB and increase WOB Technique: Single frontal view of the chest was obtained COMPARISON: DI CHEST,SINGLE VIEW on DOS: 01/08/25, DI CHEST,SINGLE VIEW on DOS: 01/07/25, DI CHEST,SINGLE VIEW on DOS: 01/06/25, DI CHEST,TWO VIEWS on DOS: 12/29/24 FINDINGS: Heart size is normal. Decrease in vascular congestion and small left pleural effusion. There is left basilar atelectasis. No pneumothorax. No acute osseous abnormality. Median sternotomy. Right IJ central line has been removed. IMPRESSION: Decrease in vascular congestion and small left pleural effusion. Left basilar atelectasis
[2025-01-08] MEDS: pantoprazole 40mg Tablet.DR PO SCH (11:52)
[2025-01-08] MEDS: ipratropium/albuterol 3ml nebule ONE (12:55)
[2025-01-08] MEDS: ipratropium/albuterol 3ml nebule NEB PRN (12:58)
[2025-01-08] MEDS: Ensure Enlive - 237ML PO SCH (13:06)
[2025-01-08] MEDS: heparin, porcine 5000 units/ml vial SQ SCH (17:07)
[2025-01-09] VITALS (27 sets, daily range): BP systolic 104–157; BP diastolic 52–95; PULSE 81–144; RESP 10–22; TEMP 97.6–98.1; O2SAT 93–98
[2025-01-09 04:52] LABS: CREATININE 1.41 MG/DL (0.60-1.10); TOTAL CARBON DIOXIDE 24.8 MMOL/L (24-32); eCRCL 43 ML/MIN; eGFR 50 ML/MIN
[2025-01-09 04:54] LABS: MEAN PLATELET VOLUME 10.0 FL (7.4-10.4); RED CELL DISTRIBUTION WIDTH 16.3 % (11.5-14.5)
--- NOTE | 2025-01-09 05:46 | RADIOLOGY REPORT ---
CHEST RADIOGRAPH Indication: POST OP Technique: Single frontal view of the chest was obtained COMPARISON: DI CHEST,SINGLE VIEW on DOS: 01/08/25, DI CHEST,SINGLE VIEW on DOS: 01/08/25, DI CHEST,SINGLE VIEW on DOS: 01/07/25, DI CHEST,SINGLE VIEW on DOS: 01/06/25, DI CHEST,TWO VIEWS on DOS: 12/29/24 FINDINGS: Cardiac silhouette is borderline in size. No overt pulmonary edema. Stable trace left-sided pleural effusion with mild left basilar atelectasis / consolidation. IMPRESSION: Stable trace left-sided pleural effusion with mild left basilar atelectasis / consolidation.
--- NOTE | 2025-01-09 07:49 | PROGRESS NOTE ---
Progress Note CV Providers to CC ~ Antibiotics Ordered?: No Subjective Subjective S/P CABG x 3 POD # 3. Went back into A. fib last night and is sustaining rates in the 130's. Says overall he is feeling better today. Objective Vitals Vital Signs Date Time Temp Pulse Resp B/P (MAP) Pulse Ox O2 Delivery O2 Flow Rate FiO2 01/09/25 07:19 137 12 96 12.0 70 01/09/25 07:00 99.3 119/67 (84) High Flow Nasal Cannula Lab Results: 01/09/25 0423 01/09/25 0423 Objective Lungs - diminished at bases, remains on high flow O2 Heart - Irreg, irreg, A. fib Abd/extr - [place] Incisions - CDI Coagulation Studies Laboratory Tests Test 01/06/25 14:04 01/06/25 16:10 01/06/25 16:37 Patient Sex (Coag) M Patient Height (Coag) 165cm Patient Weight (Coag) 83.0k KG Patient Blood Volume 5578 ML Pump Volume 1500 ML Total Blood Volume 7078 ML Projected Heparin Concentration 2.6 MG/KG Heparin [place] 98 Calculated Heparin Bolus 09354 UNITS Activated Coagulation Time Baseline 138 SEC (101-148) Activated Coag Time 1.70 U/mL 275 SEC (193-297) Activated Coag Time 2.84 U/mL 380 SEC (260-420) Prothrombin Time 12.0 SECONDS (9.0-12.0) INR International Normalized Ratio 1.2 INR Activated Partial Thromboplast Time 30 SECONDS (22-32) Coagulation Comments Heparin Level (COAG) 0 MG/KG Calculated Heparin Req (Hep Assay) 15864 UNITS Calculated Protamine Req (Hep Assay 0 MG Activated Clotting Time 106 SEC (101-148) Cardiac Rhythm: Atrial Fibrillation Problem\Assessment\Plan Additional Plan POD # 3 Back in A. fib Will re-bolus with IV Amiod and increase PO to 200 TID Creat downtrending. Susan Roche later today. To PCU. Sepsis Screening Reassessment Date: Jan 09, 2025 Supervising Co-signing Provider: SONIA Banks Jan 09, 2025 07:49
[2025-01-09] MEDS: amiodarone 150mg/dext, iso-os 100 ML IV ONE (08:22)
[2025-01-09] MEDS: amiodarone/D5 360MG/200ML BAG 200 ML IV SCH (22:42)
[2025-01-10] VITALS (17 sets, daily range): BP systolic 139–168; BP diastolic 69–92; PULSE 74–104; RESP 11–19; TEMP 97.2–98.3; O2SAT 93–97
[2025-01-10 06:51] LABS: MEAN PLATELET VOLUME 9.5 FL (7.4-10.4); RED CELL DISTRIBUTION WIDTH 16.2 % (11.5-14.5)
[2025-01-10 06:57] LABS: CREATININE 0.89 MG/DL (0.60-1.10); TOTAL CARBON DIOXIDE 26.8 MMOL/L (24-32); eCRCL 68 ML/MIN; eGFR 85 ML/MIN
[2025-01-10] MEDS: metoclopramide 5 mg/ml inj IV PRN (07:29)
[2025-01-10] MEDS: metoprolol tartrate 12.5mg (1/2 tablet) PO SCH (08:50)
--- NOTE | 2025-01-10 13:04 | PROGRESS NOTE ---
Progress Note CV Providers to CC ~ Progress Note: POD#4 CABG Central Line/PICC still needed: No Roche Indications Met/Not Met: F/C Indications Not Met Antibiotics Ordered?: No Subjective Subjective The patient is still little sore. Objective Vitals Vital Signs Date Time Temp Pulse Resp B/P (MAP) Pulse Ox O2 Delivery O2 Flow Rate FiO2 01/10/25 11:31 104 16 93 12.0 45 01/10/25 05:00 160/81 (107) 01/10/25 03:04 High Flow Nasal Cannula 01/10/25 02:00 97.4 Lab Results: 01/10/25 0557 01/10/25 0557 Objective Cardiac exam regular rate and rhythm without rub. Lungs fairly clear although diminished at both bases. Sternal incision clean and dry. Coagulation Studies Laboratory Tests Test 01/06/25 14:04 01/06/25 16:10 01/06/25 16:37 Patient Sex (Coag) M Patient Height (Coag) 165cm Patient Weight (Coag) 83.0k KG Patient Blood Volume 5578 ML Pump Volume 1500 ML Total Blood Volume 7078 ML Projected Heparin Concentration 2.6 MG/KG Heparin [place] 98 Calculated Heparin Bolus 98261 UNITS Activated Coagulation Time Baseline 138 SEC (101-148) Activated Coag Time 1.70 U/mL 275 SEC (193-297) Activated Coag Time 2.84 U/mL 380 SEC (260-420) Prothrombin Time 12.0 SECONDS (9.0-12.0) INR International Normalized Ratio 1.2 INR Activated Partial Thromboplast Time 30 SECONDS (22-32) Coagulation Comments Heparin Level (COAG) 0 MG/KG Calculated Heparin Req (Hep Assay) 49443 UNITS Calculated Protamine Req (Hep Assay 0 MG Activated Clotting Time 106 SEC (101-148) Cardiac Rhythm: Sinus Rhythm, BBB Problem\Assessment\Plan Additional Plan Patient continues to go in and out of atrial fibrillation. We will stop drip this morning and resumed oral. Begin tramadol for pain and discontinue morphine. Okay to shower. A plan discharge in [place]ANT[place] Patino III, MD Jan 10, 2025 13:04
[2025-01-10] MEDS ORDERED: ondansetron 4mg rapidly disintigrating tab PO PRN (17:40)
[2025-01-11] VITALS (11 sets, daily range): BP systolic 152–172; BP diastolic 71–97; PULSE 79–91; RESP 14–22; TEMP 97.2–98.4; O2SAT 91–98
[2025-01-11 06:22] LABS: MEAN PLATELET VOLUME 11.4 FL (7.4-10.4); RED CELL DISTRIBUTION WIDTH 15.9 % (11.5-14.5)
[2025-01-11 06:28] LABS: CREATININE 0.79 MG/DL (0.60-1.10); TOTAL CARBON DIOXIDE 30.3 MMOL/L (24-32); eCRCL 77 ML/MIN; eGFR > 90 ML/MIN
--- NOTE | 2025-01-11 10:33 | PROGRESS NOTE ---
Progress Note CV Providers to CC ~ Antibiotics Ordered?: No Subjective Subjective S/P CABG x 3 POD # 5. He is now on room air but a bit SOB with exertion. Was not particularly active preop and didn't walk very far in a day. He now says he want to go to rehab rather than to home. DC planning is aware. Objective Vitals Vital Signs Date Time Temp Pulse Resp B/P (MAP) Pulse Ox O2 Delivery O2 Flow Rate FiO2 01/11/25 08:50 89 14 96 Nasal Cannula* 2 28 01/11/25 06:00 98.4 172/86 (114) Lab Results: 01/11/25 0513 01/11/25 0513 Objective Lungs - fairly clear Heart - RRR, SR Abd/Extr - OK Incisions - CDI Coagulation Studies Laboratory Tests Test 01/06/25 14:04 01/06/25 16:10 01/06/25 16:37 Patient Sex (Coag) M Patient Height (Coag) 165cm Patient Weight (Coag) 83.0k KG Patient Blood Volume 5578 ML Pump Volume 1500 ML Total Blood Volume 7078 ML Projected Heparin Concentration 2.6 MG/KG Heparin [place] 98 Calculated Heparin Bolus 86050 UNITS Activated Coagulation Time Baseline 138 SEC (101-148) Activated Coag Time 1.70 U/mL 275 SEC (193-297) Activated Coag Time 2.84 U/mL 380 SEC (260-420) Prothrombin Time 12.0 SECONDS (9.0-12.0) INR International Normalized Ratio 1.2 INR Activated Partial Thromboplast Time 30 SECONDS (22-32) Coagulation Comments Heparin Level (COAG) 0 MG/KG Calculated Heparin Req (Hep Assay) 43473 UNITS Calculated Protamine Req (Hep Assay 0 MG Activated Clotting Time 106 SEC (101-148) Cardiac Rhythm: Sinus Rhythm, BBB, Sinus Tachycardia, Atrial Fibrillation Problem\Assessment\Plan Additional Plan POD # 5 Now maintaining SR Wants rehab rather than home. Plan for rehab tomorrow. Sepsis Screening Reassessment Date: Jan 11, 2025 Supervising Co-signing Provider: SONIA Banks Jan 11, 2025 10:33
[2025-01-12 02:00] VITALS: BP 158/64; PULSE 65; RESP 15; TEMP 97.2; O2SAT 99
[2025-01-12 06:00] VITALS: BP 158/67; PULSE 87; RESP 15; TEMP 97.7; O2SAT 95
[2025-01-12 07:06] LABS: CREATININE 0.69 MG/DL (0.60-1.10); TOTAL CARBON DIOXIDE 31.9 MMOL/L (24-32); eCRCL 88 ML/MIN; eGFR > 90 ML/MIN
[2025-01-12 08:25] VITALS: BP_SYST 158
--- NOTE | 2025-01-12 09:06 | PROGRESS NOTE ---
Progress Note CV Providers to CC ~ Antibiotics Ordered?: No Subjective Subjective S/P CABG x 3 POD # 6. He is alert, up to chair for breakfast. Feels much improved after shower yesterday. Back on 2L NC today. Brief episode of A. fib last night, otherwise SR. Says he believes he has been having A. fib at home. Objective Vitals Vital Signs Date Time Temp Pulse Resp B/P (MAP) Pulse Ox O2 Delivery O2 Flow Rate FiO2 01/12/25 08:25 87 01/12/25 02:00 97.2 15 158/64 (95) 99 Nasal Cannula 2.0 01/11/25 20:00 28 Lab Results: 01/11/25 0513 01/12/25 0612 Objective Lungs - mildly diminished at bases Heart - RRR, SR Abd/Extr - OK Incisions - CDI Coagulation Studies Laboratory Tests Test 01/06/25 14:04 01/06/25 16:10 01/06/25 16:37 Patient Sex (Coag) M Patient Height (Coag) 165cm Patient Weight (Coag) 83.0k KG Patient Blood Volume 5578 ML Pump Volume 1500 ML Total Blood Volume 7078 ML Projected Heparin Concentration 2.6 MG/KG Heparin [place] 98 Calculated Heparin Bolus 11980 UNITS Activated Coagulation Time Baseline 138 SEC (101-148) Activated Coag Time 1.70 U/mL 275 SEC (193-297) Activated Coag Time 2.84 U/mL 380 SEC (260-420) Prothrombin Time 12.0 SECONDS (9.0-12.0) INR International Normalized Ratio 1.2 INR Activated Partial Thromboplast Time 30 SECONDS (22-32) Coagulation Comments Heparin Level (COAG) 0 MG/KG Calculated Heparin Req (Hep Assay) 72258 UNITS Calculated Protamine Req (Hep Assay 0 MG Activated Clotting Time 106 SEC (101-148) Cardiac Rhythm: Sinus Rhythm, BBB Problem\Assessment\Plan Additional Plan POD # 6 Mostly SR now Anticoag tx To rehab today. Sepsis Screening Reassessment Date: Jan 12, 2025 Supervising Co-signing Provider: SONIA Banks Jan 12, 2025 09:06
[2025-01-12 09:12] VITALS: PULSE 88; RESP 18; O2SAT 95
--- NOTE | 2025-01-12 10:19 | DISCHARGE SUMMARY ---
DATE OF DISCHARGE: 01/12/2025 DICTATING PHYSICIAN: Sharif Mills ADMITTING PHYSICIAN: Dr. Nathan Celis. WOOD HEEL FLAP INSERTER: Dr. Carolina. PREOPERATIVE DIAGNOSES: Severe multivessel coronary artery disease, history of diabetes, and history of hypertension, hyperlipidemia. DISCHARGE DIAGNOSES: Severe multivessel coronary artery disease, history of diabetes, and history of hypertension, hyperlipidemia and status post coronary artery bypass grafting x3. COMPLICATIONS: Postoperatively none. He did have some postoperative atrial fibrillation intermittently. SUMMARY: This is a very pleasant 69-year-old gentleman, a patient of Dr. Carolina's, who has a history of exertional angina with severe coronary artery disease noted on cardiac catheterization. At that initial time, he did not wish to proceed with surgery and wanted to delay it over the intervening months. He has become increasingly symptomatic with exertional dyspnea as well as exertional chest pain. Blood pressure has remained somewhat difficult to control and has been worked on by Dr. Carolina. The patient was admitted electively and taken to the operating room on 01/06/2025 where he underwent coronary artery bypass grafting x 3 with a right internal mammary artery as a free graft to the obtuse marginal and sequential left radial arterial graft to the first and second PDA of the RCA along with endoscopic radial artery harvesting on the left and transesophageal echocardiography. Following the operation, the patient was transferred to the [facility] in stable condition where the following morning he was a bit sore, otherwise feeling well. His H and H was 9.2 and 27.4. He had a slightly elevated right hemidiaphragm for a couple of days. This resolved. Low-dose beta-flakito was initiated and nitroglycerin drip was weaned. He was placed on Imdur and should remain on this for the radial artery. He also was started on some Toradol and creatinine arie to a peak of 2.1. Toradol discontinued. Urine output remained steady and creatinine returned to baseline, on day of discharge it is 0.69. H and H today is 9.0 and 26.7. Chest drains were removed on postop day #2 and he was transitioned to the Progressive Care Unit. He did develop atrial fibrillation. Amiodarone bolus and drip were initiated. On day 3, he reverted back to sinus rhythm and then subsequently had further A-fib. He was rebolused with IV amiodarone and the dose was increased to 200 t.i.d. He was diuresed. Roche central line were removed and he was transitioned, as I say, to the Progressive Care Unit. He is slowly improving in terms of his overall function and strength. Also, of note, he required high flow oxygen postoperatively. This has been weaned down to 2 liters. He is participating with physical therapy. His preference is to go to a rehab facility as he has limited help at home. DISCHARGE PROGRAM: Followup appointment with the surgeon's office in 2 weeks. Follow up appointment with Dr. Carolina in 4 weeks and with his primary physician in 6 weeks. ACTIVITY: Physical therapy and occupational therapy. DIET: He will be on a carb controlled diet. MEDICATIONS ON DISCHARGE: Vitamin C 1000 mg p.o. daily, aspirin 81 mg p.o. daily, Lipitor 10 mg p.o. daily, vitamin D3 50 mcg p.o. daily, vitamin B12 1000 mcg p.o. daily, Farxiga 10 mg p.o. daily, ferrous gluconate 324 mg p.o. daily, insulin glargine/lixisenatide or Soliqua 30 units subcutaneously q.a.m., potassium citrate 99 mg p.o. daily, semaglutide 1 mg subcutaneously q. 7 days, vitamin B complex as at home. Additionally, Ensure Enlive one can p.o. t.i.d. with meals. Tylenol 650 mg p.o. q.4 hours p.r.n. mild pain. Amiodarone 200 mg p.o. b.i.d., Eliquis 5 mg p.o. b.i.d., DuoNebs q.4 hours p.r.n., Imdur 60 mg p.o. daily, Milk of Magnesia 30 mL p.o. b.i.d. p.r.n. constipation, metoprolol 50 mg p.o. b.i.d., mineral oil enema p.r.n., constipation, Protonix 40 mg p.o. daily, Senna S tablet 1 p.o. b.i.d. Sharif Celis MD TID: [id number] RECEIPT: [id number] PRETTY/ROSE cc: Elsa Carolina MD, Primary Care Physician
== END 2025-01-12 14:45 | DRG 235 ==
LOC: PAS IN 09:57 → CICU 2S 16:11 → PCU 3S 01-09 16:44
PROVIDERS: ADMIT Thoracic Surgery (Cardiothoracic Vascular Surgery); ATTEND Thoracic Surgery (Cardiothoracic Vascular Surgery)
PROC: 021 Heart and Great Vessels, Bypass (ICD-10-PCS; 2025-01-06)
PROC: 03BC4ZZ Excision of Left Radial Artery, Percutaneous Endoscopic Approach (ICD-10-PCS; 2025-01-06)
PROC: 5A1221Z Performance of Cardiac Output, Continuous (ICD-10-PCS; 2025-01-06)
PROC: 5A09357 Assistance with Respiratory Ventilation, Less than 24 Consecutive Hours, Continuous Positive Airway Pressure (ICD-10-PCS; 2025-01-06)
PROC: 02100Z8 Bypass Coronary Artery, One Artery from Right Internal Mammary, Open Approach (ICD-10-PCS; principal; 2025-01-06 12:18)
PROC: 5A09357 Assistance with Respiratory Ventilation, Less than 24 Consecutive Hours, Continuous Positive Airway Pressure (ICD-10-PCS; 2025-01-07)
PROC: 5A0935A Assistance with Respiratory Ventilation, Less than 24 Consecutive Hours, High Flow/Velocity Cannula (ICD-10-PCS; 2025-01-07)
PROC: 5A09357 Assistance with Respiratory Ventilation, Less than 24 Consecutive Hours, Continuous Positive Airway Pressure (ICD-10-PCS; 2025-01-08)
PROC: 5A0935A Assistance with Respiratory Ventilation, Less than 24 Consecutive Hours, High Flow/Velocity Cannula (ICD-10-PCS; 2025-01-08)
PROC: 5A0945A Assistance with Respiratory Ventilation, 24-96 Consecutive Hours, High Flow/Velocity Cannula (ICD-10-PCS; 2025-01-09)
DX: I25.119 Atherosclerotic heart disease of native coronary artery with unspecified angina pectoris (principal); N17.0 Acute kidney failure with tubular necrosis; E11.9 Type 2 diabetes mellitus without complications; I10 Essential (primary) hypertension; I48.91 Unspecified atrial fibrillation; E78.5 Hyperlipidemia, unspecified
CPT/HCPCS: 36415; 36600; 71045; 71046; 80048; 80053; 81001; 82330; 82435; 82803; 82947; 82948; 83036; 83735; 84100; 84132; 84295; 85007; 85018; 85025; 85347; 85610; 85730; 86885; 86900; 86901; 86920; 87081; 93005; 93312; 93325; 93880; 93930; 93971; 94002; 94010; 94640; 94660; 94668; 94760; 97110; 97116; 97162; A4333; A4615; A4618; A4620; A6213; A6258; A6402; A6446; A6449; A7000; A7048; C1751; G0378; J0131; J0169; J0282; J0665; J0690; J1644; J1815; J1885; J1938; J2151; J2250; J2270; J2405; J2440; J2704; J2720; J2765; J2919; J3373; J3375; J3475; J3480; J3490; J7030; J7040; J7050; J7120; P9045; P9047